=== PATIENT | male | born 1990 | race African-American/Black ===

== ENCOUNTER 2024-01-22 05:29 | Emergency (ER) | payer OTHER ==
[2024-01-22 05:34] VITALS: BMI 22.4
[2024-01-22] MEDS ORDERED: ACETAMINOPHEN 325 MG TABLET (FP) ONE (06:25)
[2024-01-22] MEDS: ACETAMINOPHEN 500 MG TABLET (FP) PO ONE (06:25)
[2024-01-22 06:42] LABS: BASO % 1.4 % (0-2.0); EOS % 3.6 % (0-4.5); HEMATOCRIT 39.6 % (35.4-49); HEMOGLOBIN 13.7 GM/dL (11.7-16.9); LYMPH % 34.5 % (8-40); MCH 32.2 pg (25.7-33.7); MCHC 34.5 g/dl (32.0-35.9); MEAN CELL VOLUME 93.1 fl (80-96); MEAN PLT VOLUME 9.6 fl (7.5-11.1); MONO % 9.1 % (3.8-10.2); NEUT % 51.4 % (42.8-82.8); PLATELET COUNT 219 10^3/uL (134-434); RBC 4.26 M/mm3 (4.00-5.60); WHITE BLOOD COUNT 5.4 K/mm3 (4.0-10.0)
[2024-01-22 06:43] LABS: INR 1.06 (0.83-1.09); PROTHROMBIN TIME (PATIENT) 12.3 SEC (9.7-13.0)
[2024-01-22 06:46] LABS: ACTIVATED PTT 37.3 SECONDS (25.2-36.5)
[2024-01-22 07:02] LABS: POTASSIUM 4.2 mmol/L (3.5-5.1)
[2024-01-22 07:03] LABS: CALCIUM 8.8 mg/dL (8.5-10.1)
[2024-01-22 07:04] LABS: ALBUMIN 4.2 g/dl (3.4-5.0); BLOOD UREA NITROGEN 10.1 mg/dL (7-18)
[2024-01-22 07:07] LABS: CREATININE 0.9 mg/dL (0.55-1.3)
[2024-01-22 07:09] LABS: EPI CELLS 2 /uL (0-25.1); HYALINE CASTS 0 /uL (0-3.1); URINE APPEARANCE CLEAR; URINE BACTERIA 1 /uL (0-1359); URINE BILIRUBIN NEGATIVE (NEGATIVE); URINE COLOR YELLOW; URINE GLUCOSE (UA) NEGATIVE (NEGATIVE); URINE KETONE NEGATIVE (NEGATIVE); URINE LEUK ESTERASE NEGATIVE (NEGATIVE); URINE NITRITE NEGATIVE (NEGATIVE); URINE PROTEIN NEGATIVE (NEGATIVE); URINE RBC 1943 /uL (0-23.9); URINE WBC 7 /uL (0-25.8)
[2024-01-22 07:09] LABS: BILIRUBIN,TOTAL 0.8 mg/dL (0.2-1); TOT PROT 7.5 g/dl (6.4-8.2)
[2024-01-22] MEDS ORDERED: KETOROLAC TROMETHAMINE 30 MG/1 ML VIAL ONE (09:14)
[2024-01-22] MEDS: KETOROLAC TROMETHAMINE 30 MG/1 ML VIAL IVPUSH ONE (09:20)
[2024-01-22] MEDS: SODIUM CHLORIDE 0.9% 500 ML INFUS.BAG IV ONE (09:20)
[2024-01-22 10:07] LABS: PLATELET ESTIMATE ADEQUATE
[2024-01-22 10:18] VITALS: BP 101/59; PULSE 52; RESP 16; TEMP 98
== END 2024-01-22 10:22 | disposition home or self-care (01) ==
LOC: JER 05:29
PROC: 3E0333Z Introduction of Anti-inflammatory into Peripheral Vein, Percutaneous Approach (ICD-10-PCS; principal; 2024-01-22)
DX: R10.9 Unspecified abdominal pain (principal); N20.0 Calculus of kidney
CPT/HCPCS: 36415; 71046-TC-FY; 74176-TC; 80053; 81003; 84484; 85025; 85610; 85730; 87086; 93005; 93010; 99285-25